=== PATIENT | male | born 1965 | race African-American/Black ===

== ENCOUNTER 2022-06-02 14:28 | Emergency (ER) | payer OTHER ==
[~2022-06-02] VITALS: Ht 165.1 cm; Wt 86.2 kg
[2022-06-02 14:30] VITALS: TEMP 98
[2022-06-02 16:00] VITALS: BP 158/88
== END 2022-06-02 16:09 | disposition home or self-care (01) ==
LOC: ED 14:28
DX: L03.115 Cellulitis of right lower limb (principal); M19.071 Primary osteoarthritis, right ankle and foot; X50.1XXA Overexertion from prolonged static or awkward postures, initial encounter; Y92.89 Other specified places as the place of occurrence of the external cause
CPT/HCPCS: 96372; 99283; J1885

== ENCOUNTER 2022-06-14 08:50 | Emergency (ER) | payer OTHER ==
[~2022-06-14] VITALS: Ht 165.1 cm; Wt 79.4 kg
[2022-06-14 08:55] VITALS: BP 161/91; TEMP 99
== END 2022-06-14 10:50 | disposition home or self-care (01) ==
LOC: ED 08:50
PROC: 0H9KXZZ Drainage of Right Lower Leg Skin, External Approach (ICD-10-PCS; principal; 2022-06-14)
DX: L02.415 Cutaneous abscess of right lower limb (principal)
CPT/HCPCS: 87070; 87205; 99283

== ENCOUNTER 2022-06-16 08:47 | Emergency (ER) | payer OTHER ==
[~2022-06-16] VITALS: Ht 165.1 cm; Wt 79.4 kg
[2022-06-16 08:55] VITALS: TEMP 97
[2022-06-16 09:59] LABS: PLATELET COUNT 414 K/uL (142-355)
[2022-06-16 10:02] LABS: POTASSIUM 4.6 mmol/L (3.6-5.2)
[2022-06-16 10:55] VITALS: BP 141/46
== END 2022-06-16 11:09 | disposition short-term general hospital (02) ==
LOC: ED 08:47
PROVIDERS: Family Medicine
DX: L02.415 Cutaneous abscess of right lower limb (principal); E11.65 Type 2 diabetes mellitus with hyperglycemia; Z11.52 Encounter for screening for COVID-19
CPT/HCPCS: 36415; 80053; 85027; 85379; 86140; 87635; 96360; 96365; 99284; J3370; U0003